=== PATIENT | male | born 1995 | race Caucasian/White ===

== ENCOUNTER → 2024-08-28 20:01 | Outpatient (CLI) | payer OTHER, SELFPAY ==
--- NOTE | 2024-08-28 20:03 | DI.MRI.S_ITS ---
PROCEDURE: MR LUMBAR SPINE WO/W CON INDICATIONS: R/O tumor TECHNIQUE: Noncontrast sagittal T1 spin echo and T2 fast spin echo, sagittal STIR, axial T1 and T2 fast spin echo through the lumbar spine. In cases with scoliosis, additional coronal T2 fast spin echo may be performed. After the intravenous administration of 10 milliliters ProHance contrast, sagittal and axial T1 spin echo with fat saturation through the lumbar spine. COMPARISON: None. FINDINGS: Image quality: Excellent. Alignment and curvature: There is normal bony alignment. Marrow: Marrow is of normal overall signal. No acute vertebral body compression fractures. No suspicious marrow enhancement. Spinal cord: Conus medullaris terminates at the L2 level. Visualized spinal cord demonstrates normal signal, without suspicious enhancement. Paraspinous soft tissues: No paravertebral masses or abnormal enhancement. T12-L1: Normal appearance. L1-L2: Normal appearance. L2-L3: Normal appearance. L3-L4: Normal appearance. L4-L5: Loss of disc signal. Mild, diffuse disc bulge. Small left foraminal disc protrusion. No central stenosis. Moderate left neural foraminal narrowing. No neural compression. L5-S1: Normal appearance. IMPRESSION: No abnormal mass or suspicious postcontrast enhancement. Mild L4-L5 degenerative disc disease. No severe central canal stenosis. No severe neural foraminal stenosis. No neural compression. Dictated by: Salome Herron MD, PhD on 08/29/2024 at 11:18 Approved by: Salome Herron MD, PhD on 08/29/2024 at 11:20
== END ==
PROVIDERS: Referring Provider Nurse Practitioner Family; Visit Provider Nurse Practitioner Family
DX: M25.552 Pain in left hip (principal); M51.360 Other intervertebral disc degeneration, lumbar region with discogenic back pain only
CPT/HCPCS: 72148; 72158; A9579

== ENCOUNTER → 2025-01-30 11:54 | Outpatient (CLI) | payer OTHER, SELFPAY ==
--- NOTE | 2025-01-30 11:55 | DI.MRI.S_ITS ---
PROCEDURE: MR CERVICAL SPINE WO CON INDICATIONS: neck pains TECHNIQUE: Noncontrast sagittal T1 spin echo and T2 fast spin echo, sagittal STIR, foraminal oblique sagittal T2 fast spin echo, and axial gradient echo or T2 fast spin echo through the cervical spine. COMPARISON: None. FINDINGS: Image quality: Excellent Straightening of the cervical spine. Mild retrolisthesis C5 on C6. Vertebral body heights of the cervical spine is well maintained. Multilevel disc desiccation disc bulge. Marrow signal is normal for age. Cervical cord: Normal in signal. Right neural foraminal stenosis: Mild at C5-6. Left neural foraminal stenosis: Mild at C2-3, C5-6. The axial images: C2-3: No central canal stenosis. C3-4: No central canal stenosis. C4-5: Posterior disc osteophyte complex. No central canal stenosis. C5-6: Posterior disc osteophyte complex. No central canal stenosis. C6-C7: No central canal stenosis. C7-T1: No central canal stenosis. Other soft tissue findings: Unremarkable IMPRESSION: Multilevel degenerative changes, most pronounced at C5-6, where there is mild bilateral neural foraminal stenosis. No central canal stenosis in the cervical spine. Dictated by: Christine Teresa M.D. on 01/30/2025 at 14:22 Approved by: Christine Teresa M.D. on 01/30/2025 at 14:30
== END ==
LOC: MRI 11:54
PROVIDERS: Referring Provider Student in an Organized Health Care Education/Training Program; Visit Provider Student in an Organized Health Care Education/Training Program
DX: M47.812 Spondylosis without myelopathy or radiculopathy, cervical region (principal); M48.02 Spinal stenosis, cervical region; R20.2 Paresthesia of skin
CPT/HCPCS: 72141